=== PATIENT | female | born 1955 | race Caucasian/White ===

== ENCOUNTER 2021-08-15 07:18 | Observation (INO) | payer OTHER ==
[~2021-08-15] VITALS: Ht 152.4 cm; Wt 73.0 kg
[2021-08-15] MEDS ORDERED: NITR.4SL SL (07:54)
[2021-08-15] MEDS ORDERED: OMEP20ER PO (07:54)
[2021-08-15] MEDS ORDERED: METO100 PO (07:55)
[2021-08-15] MEDS ORDERED: CLOP75 PO (07:55)
[2021-08-15] MEDS ORDERED: FURO40 PO (07:55)
[2021-08-15] MEDS ORDERED: BUPR150ER PO (07:55)
[2021-08-15 07:56] LABS: BASOPHILS ABSOLUTE AUTO 0.06 K/mm3 (0.00-0.23); BASOPHILS PERCENT AUTO 0 % (0-2); EOSINOPHILS ABSOLUTE AUTO 0.37 K/mm3 (0.00-0.68); EOSINOPHILS PERCENT AUTO 2 % (0-6); Hematocrit 42.3 % (33.0-51.0); Hemoglobin 13.3 g/dL (11.5-16.0); IMMATURE GRAN ABSOLUTE AUTO 0.05 K/mm3 (0.00-0.10); IMMATURE GRAN PERCENT AUTO 0 % (0-1); LYMPHOCYTES ABSOLUTE AUTO 3.45 K/mm3 (0.84-5.20); LYMPHOCYTES PERCENT AUTO 22 % (21-46); MONOCYTES ABSOLUTE AUTO 0.77 K/mm3 (0.16-1.47); MONOCYTES PERCENT AUTO 5 % (4-13); Mean Corpuscular HGB 29.3 pg (26.0-34.0); Mean Corpuscular HGB Conc 31.4 g/dL (31.5-36.5); Mean Corpuscular Volume 93 fL (80-100); Mean Platelet Volume 9.9 fL (9.1-12.4); NEUTROPHILS ABSOLUTE AUTO 11.03 K/mm3 (1.96-9.15); NEUTROPHILS PERCENT AUTO 70 % (41-73); Platelet Count 294 K/mm3 (150-400); RDW Coefficient Variation 13.5 % (11.7-14.2); RDW Standard Deviation 46.5 fL (35.1-46.3); Red Blood Cell Count 4.54 M/mm3 (3.80-5.20); White Blood Cell Count 15.73 K/mm3 (4.00-11.30)
[2021-08-15] MEDS ORDERED: LOSA25 PO (07:56)
[2021-08-15] MEDS ORDERED: ASPIR 8181 MG PO (07:56)
[2021-08-15] MEDS ORDERED: ATOR80 PO (07:56)
[2021-08-15] MEDS ORDERED: FENO54 PO (07:56)
[2021-08-15] MEDS ORDERED: ZYRTEC10 M1 PO (07:57)
[2021-08-15 08:08] LABS: Albumin, Blood 3.6 g/dL (3.4-5.0); Albumin/Globulin Ratio 0.9 (0.8-1.8); Bilirubin, Total 0.5 mg/dL (0.1-1.0); Bun/Creatinine Ratio 12.6 (12.0-20.0); Calcium, Blood 8.5 mg/dL (8.5-10.1); Creatinine, Blood 1.03 mg/dL (0.40-1.00); Globulin, Blood 3.8 g/dL (2.2-4.0); Total Protein, Blood 7.4 g/dL (6.4-8.2)
[2021-08-15 08:36] LABS: Influenza A, PCR NEGATIVE (NEGATIVE); Influenza B, PCR NEGATIVE (NEGATIVE); Resp Syncytial Virus, PCR NEGATIVE (NEGATIVE); SARS-Cov-2 (COVID-19) PCR, MMC NEGATIVE (NEGATIVE)
--- NOTE | 2021-08-15 12:28 | NUR ---
ADMIT TO PCU: PATIENT ADMIT TO PCU AT 1139. ABLE TO STAND AND TRANSFER IND. ALERT AND ORIENTED X4. VERY HAPPY AND CALM. CLAIMS TO HAVE HISTORY OF NUMBNESS/TINGLING THAT COMES AND GOES IN ARMS AND LEGS. PERRLA. ON ROOM AIR SATING LOW 90'S. SOB WITH EXERTION. LUNGS SOUNDING CLEAR AND DIM AT THIS TIME. WHEEZES COME AND GO. TELE SHOWING SINUS RHYTHM WITH HR 60-70'S. DENIES CHEST PAIN/PRESSURE AT THIS TIME. STATES PRESSURE IN CHEST COMES AND GOES. PATIENT STATES SHE HAS NOT BEEN TAKING HER IMDUR AT HOME. DENIES ABDOMINAL PAIN/NAUSEA. STRICT I/O. UP TO BATHROOM IND. ORIENTED TO ROOM AND UNIT. VITAL SIGNS STABLE AT THIS TIME. BP TRENDING IN RIGHT DIRECTION FROM HYDRALAZINE THAT WAS GIVEN IN ED. PATIENT PLACED CALL TO PARTNER BETH TO UPDATE. CALL LIGHT IN REACH. DENIES NEEDS AT THIS TIME. WILL CONTINUE TO MONITOR.
--- NOTE | 2021-08-15 18:45 | NUR ---
SHIFT SUMMARY: NO ACUTE CHANGES, SEE PREVIOUS AM NOTE. BP TRENDING IN RIGHT DIRECTION. PATIENT STATES HER BREATHING HAS IMPROVED AND SHE IS FEELING MUCH BETTER. STRICT I/O. UP TO BATHROOM IND, URINATING IN HAT FOR MEASURMENT. COMPLAINED OF HEADACHE, TYLENOL ORDERED AND GIVEN - WITH LITTLE RELIEF. PATIENT IN GOOD SPIRITS DISCUSSING FAMILY STORIES AND LAUGHING. CALL LIGHT IN REACH. WILL CONTINUE TO MONITOR AND REPORT OFF.
[2021-08-16 03:38] LABS: Hematocrit 40.5 % (33.0-51.0); Hemoglobin 13.2 g/dL (11.5-16.0); Mean Corpuscular HGB 28.8 pg (26.0-34.0); Mean Corpuscular HGB Conc 32.6 g/dL (31.5-36.5); Mean Corpuscular Volume 88 fL (80-100); Mean Platelet Volume 10.3 fL (9.1-12.4); Platelet Count 305 K/mm3 (150-400); RDW Coefficient Variation 13.6 % (11.7-14.2); RDW Standard Deviation 43.7 fL (35.1-46.3); Red Blood Cell Count 4.59 M/mm3 (3.80-5.20)
[2021-08-16 04:01] LABS: Bun/Creatinine Ratio 22.1 (12.0-20.0); Calcium, Blood 9.4 mg/dL (8.5-10.1); Potassium, Blood 3.3 mmol/L (3.5-5.5)
--- NOTE | 2021-08-16 05:21 | NUR ---
SHIFT SUMMARY PT IS ALERT AND ORIENTED. THERE HAVE BEEN NO ACUTE CHANGES T/O THE NIGHT. VITALS HAVE BEEN STABLE AND PT IS ON ROOM AIR WITH SATS ABOVE 92%. PT DENIES CHEST PAIN AND SOB. PT IS AD MECHELLE IN ROOM. PT HAS BEEN UP EARLY THIS MORNING AWAITING POSSIBLE DC ORDERS, PER PT. CALL LIGHT IS WITHIN REACH.
--- NOTE | 2021-08-16 09:27 | NUR ---
AM NOTE: PATIENT ALERT AND ORIENTED X4. VERY HAPPY AND COOPERATIVE WITH CARES. NEURO WNL. UP IND TO BATHROOM. DENIES NUMBNESS/TINGLING. ON ROOM AIR SATING ABOVE 94%. STATES SOB HAS BEEN IMPROVING. OCCASIONAL COUGH. TELE SHOWING SINUS RHYTHM WITH HR 60-70'S. DENIES CHEST PAIN. STATES SHE HAS OCCASIONAL PRESSURE. BP STABLE. VERY MINIMAL GENERALIZED EDEMA. STRICT I/0. DENIES ABDOMINAL PAIN/NAUSEA. TOLERATING PO DIET. TAKING PILLS WHOLE WITH WATER. NO ISSUES NOTED WITH SWALLOW. UA COLLECTED THIS AM. DENIES NEEDS AT THIS TIME. WILL CONITNUE TO MONITOR. CALL LIGHT IN REACH.
[2021-08-16 09:31] LABS: Source, Urine Clean Catch
[2021-08-16 09:36] LABS: Appearance, Urine Clear (Clear); Bilirubin, Urine Neg (Neg); Blood, Urine Neg (Neg); Color, Urine Yellow (P-Yellow); Glucose Qualitative, Urine Neg (Neg); Ketones, Urine Neg (Neg); Leukocyte Esterase, Urine Neg (Neg); Nitrite, Urine Neg (Neg); Protein, Urine Neg (Neg); Specific Gravity, Urine 1.015 (1.003-1.022); Urobilinogen, Urine NORM (Normal)
[2021-08-16] MEDS ORDERED: VISBIOME 112.51 EACH PO (12:08)
[2021-08-16] MEDS ORDERED: POTA10T PO (12:09)
[2021-08-16] MEDS ORDERED: AZIT250 PO (12:09)
[2021-08-16] MEDS ORDERED: PANT40 PO (12:16)
[2021-08-16] MEDS ORDERED: FURO20 PO (12:18)
--- NOTE | 2021-08-16 13:08 | NUR ---
DISCHARGE NOTE: NO ACUTE CHANGES. SEE PREVIOUS AM NOTE FOR UPDATES. VITAL SIGNS REMAIN STABLE. DISCHARGE INSTRUCTIONS REVIEWED AND QUESTIONS ANSWERED. THIS RN PROVIDED EDUCATION ON FOLLOW UP APPOINTMENTS, FOLLOW UP LABS, AND NEW MEDICATIONS. EDUCATION TAUGHT ON PANTOPRAZOLE IN PLACE OF OMEPRAZOLE, DUE TO ITS INTERACTIONS WITH PLAVIX. PATIENT ABLE TO TEACH BACK ALL EDUCATION. SPOUSE BETH IN TO PICK PATIENT UP. PATIENT LEFT UNIT WITH ALL PERSONAL BELONGINGS AND DISCHARGE PACKET. [facility]
== END 2021-08-16 12:58 | disposition home or self-care (01) ==
LOC: ER 07:18 → PCU 07:20 → ER 10:37 → PCU 11:30
PROVIDERS: Emergency Medicine; ADMIT Internal Medicine
DX: I16.0 Hypertensive urgency (principal); I13.0 Hypertensive heart and chronic kidney disease with heart failure and stage 1 through stage 4 chronic kidney disease, or unspecified chronic kidney disease; N18.30 Chronic kidney disease, stage 3 unspecified; I50.31 Acute diastolic (congestive) heart failure; R07.2 Precordial pain; I25.10 Atherosclerotic heart disease of native coronary artery without angina pectoris; I25.2 Old myocardial infarction; I73.9 Peripheral vascular disease, unspecified; J45.909 Unspecified asthma, uncomplicated; K21.9 Gastro-esophageal reflux disease without esophagitis; E66.9 Obesity, unspecified; D72.829 Elevated white blood cell count, unspecified; F41.9 Anxiety disorder, unspecified; F17.210 Nicotine dependence, cigarettes, uncomplicated; I34.0 Nonrheumatic mitral (valve) insufficiency; Z95.5 Presence of coronary angioplasty implant and graft; Z86.19 Personal history of other infectious and parasitic diseases; Z68.32 Body mass index [BMI] 32.0-32.9, adult; Z20.822 Contact with and (suspected) exposure to COVID-19
CPT/HCPCS: 0241U; 36415; 71045; 80048; 80053; 81003; 83880; 84145; 84443; 84484; 85025; 85027; 93005; 93010; 93306; 94640; 94664; 94762; A9270; J0360; J1650; J1940; J2930

== ENCOUNTER → 2021-08-19 | Outpatient (CLI) | payer OTHER ==
[~2021-08-19] MED LIST: ASPIR 8181 MG PO; ATOR80 PO; AZIT250 PO; BUPR150ER PO; CLOP75 PO; FENO54 PO; FURO20 PO; FURO40 PO; LOSA25 PO; METO100 PO; NITR.4SL SL; OMEP20ER PO; PANT40 PO; POTA10T PO; VISBIOME 112.51 EACH PO; ZYRTEC10 M1 PO
[2021-08-19 13:17] LABS: BASOPHILS ABSOLUTE AUTO 0.07 K/mm3 (0.00-0.23); BASOPHILS PERCENT AUTO 1 % (0-2); EOSINOPHILS PERCENT AUTO 3 % (0-6); Hematocrit 45.5 % (33.0-51.0); Hemoglobin 14.6 g/dL (11.5-16.0); IMMATURE GRAN ABSOLUTE AUTO 0.04 K/mm3 (0.00-0.10); IMMATURE GRAN PERCENT AUTO 0 % (0-1); LYMPHOCYTES ABSOLUTE AUTO 4.15 K/mm3 (0.84-5.20); LYMPHOCYTES PERCENT AUTO 33 % (21-46); MONOCYTES ABSOLUTE AUTO 0.73 K/mm3 (0.16-1.47); MONOCYTES PERCENT AUTO 6 % (4-13); Mean Corpuscular HGB 28.9 pg (26.0-34.0); Mean Corpuscular HGB Conc 32.1 g/dL (31.5-36.5); Mean Corpuscular Volume 90 fL (80-100); Mean Platelet Volume 10.1 fL (9.1-12.4); NEUTROPHILS PERCENT AUTO 57 % (41-73); Platelet Count 356 K/mm3 (150-400); RDW Coefficient Variation 13.7 % (11.7-14.2); RDW Standard Deviation 45.2 fL (35.1-46.3); Red Blood Cell Count 5.05 M/mm3 (3.80-5.20); White Blood Cell Count 12.59 K/mm3 (4.00-11.30)
== END | disposition home or self-care (01) ==
LOC: LAB 09:55 → LAB SHORT 09:55
PROVIDERS: Family Medicine
DX: J20.9 Acute bronchitis, unspecified (principal)
CPT/HCPCS: 85025

== ENCOUNTER → 2022-10-25 | Outpatient (CLI) | payer MEDICARE, OTHER | END | disposition home or self-care (01) | LOC: LAB 09:09 → LAB SHORT 09:09 | DX: K21.9 Gastro-esophageal reflux disease without esophagitis (principal) | CPT/HCPCS: 87338 ==

== ENCOUNTER 2023-04-13 06:48 | Day surgery (SDC) | payer MEDICARE, OTHER ==
--- NOTE | 2023-04-12 13:31 | NUR ---
History, Chart, Medications and Allergies reviewed and updated from medical record for planned procedure tomorrow. Patient did not answer phone to update.
[~2023-04-13] VITALS: Ht 152.4 cm; Wt 66.6 kg
[2023-04-13] VITALS (14 sets, daily range): BP systolic 90–181; BP diastolic 50–135
[~2023-04-13 06:48] MED LIST changes: +ALBU90OI INH; +ANORO ELLIPTA1 EAC1 INH; +BUPROPION XL150 M1 PO; +SPIR25 PO
--- NOTE | 2023-04-13 07:36 | NUR ---
Ambulatory in Day Surgery History, Chart, Medications and Allergies reviewed before start of procedure. Pre-Op teaching done. Pt verbalizes understanding. Patient States Post-Procedure ride home has been arranged.
--- NOTE | 2023-04-13 08:01 | NUR ---
04/13/23 0801 [place] HISTORY, CHART, MEDICATIONS AND ALLERGIES REVIEWED BEFORE START OF PROCEDURE. PATIENT CONFIRMS NPO STATUS AND AGREES WITH SCHEDULED PROCEDURE. 3-LEAD EKG REVIEWED WITH PHYSICIAN PRIOR TO START OF PROCEDURE. MONITOR INTACT WITH CONTINUOUS PULSE OXIMETRY,CAPNOGRAPHY, 3-LEAD EKG, INTERMITTENT BP. SUPPLEMENTAL O2 TO BE TITRATED THROUGHOUT PROCEDURE TO MAINTAIN O2 SATURATION ABOVE 90%. PATIENT DETERMINED TO BE ASA APPROPRIATE FOR PROPOFOL SEDATION PRIOR TO START OF PROCEDURE BY
--- NOTE | 2023-04-13 08:51 | NUR ---
PT TO DAY SURGERY STEP, HAD EGD AND COLONOSCOPY. PT FEELING WELL, IS AWAKE, ALERT AND ORIENTED; ABLE TO MOVE SELF IN BED. PT WILL BE HER RIDE HOME.
--- NOTE | 2023-04-13 09:01 | NUR ---
Discharge instructions reviewed with patient. Patient verbalizes understanding. Copy given to patient to take home.
--- NOTE | 2023-04-13 09:10 | NUR ---
Patient up to Ambulate independently. Gait steady. Discharged via wheelchair to private car for ride home.
== END 2023-04-13 09:14 | disposition home or self-care (01) ==
LOC: ORSCMMR 06:48 → ORD 08:00 → ORSCMMR 09:14
PROVIDERS: Internal Medicine Gastroenterology
PROC: 0DB98ZX Excision of Duodenum, Via Natural or Artificial Opening Endoscopic, Diagnostic (ICD-10-PCS; principal; 2023-04-13 08:00)
PROC: 0DBE8ZX Excision of Large Intestine, Via Natural or Artificial Opening Endoscopic, Diagnostic (ICD-10-PCS; principal; 2023-04-13 08:00)
PROC: 0DB48ZX Excision of Esophagogastric Junction, Via Natural or Artificial Opening Endoscopic, Diagnostic (ICD-10-PCS; principal; 2023-04-13 08:00)
PROC: 0DB58ZX Excision of Esophagus, Via Natural or Artificial Opening Endoscopic, Diagnostic (ICD-10-PCS; principal; 2023-04-13 08:00)
DX: R19.7 Diarrhea, unspecified (principal); K21.9 Gastro-esophageal reflux disease without esophagitis; K44.9 Diaphragmatic hernia without obstruction or gangrene; K63.5 Polyp of colon; R13.14 Dysphagia, pharyngoesophageal phase; I25.10 Atherosclerotic heart disease of native coronary artery without angina pectoris; Z79.899 Other long term (current) drug therapy; I25.2 Old myocardial infarction; J44.9 Chronic obstructive pulmonary disease, unspecified; F17.210 Nicotine dependence, cigarettes, uncomplicated; Z79.02 Long term (current) use of antithrombotics/antiplatelets; Z79.82 Long term (current) use of aspirin
CPT/HCPCS: 88305; A9270; J2250; J2704; J7120

== ENCOUNTER → 2023-11-22 | Outpatient (CLI) | payer MEDICARE, OTHER ==
[2023-11-22 18:42] LABS: BASOPHILS ABSOLUTE AUTO 0.07 K/mm3 (0.00-0.23); BASOPHILS PERCENT AUTO 1 % (0-2); EOSINOPHILS ABSOLUTE AUTO 0.31 K/mm3 (0.00-0.68); EOSINOPHILS PERCENT AUTO 3 % (0-6); Hematocrit 38.8 % (33.0-51.0); Hemoglobin 12.6 g/dL (11.5-16.0); IMMATURE GRAN ABSOLUTE AUTO 0.02 K/mm3 (0.00-0.10); IMMATURE GRAN PERCENT AUTO 0 % (0-1); LYMPHOCYTES ABSOLUTE AUTO 3.75 K/mm3 (0.84-5.20); LYMPHOCYTES PERCENT AUTO 35 % (21-46); MONOCYTES ABSOLUTE AUTO 0.61 K/mm3 (0.16-1.47); MONOCYTES PERCENT AUTO 6 % (4-13); Mean Corpuscular HGB 29.1 pg (26.0-34.0); Mean Corpuscular HGB Conc 32.5 g/dL (31.5-36.5); Mean Corpuscular Volume 90 fL (80-100); Mean Platelet Volume 9.7 fL (9.1-12.4); NEUTROPHILS ABSOLUTE AUTO 5.87 K/mm3 (1.96-9.15); NEUTROPHILS PERCENT AUTO 55 % (41-73); Platelet Count 262 K/mm3 (150-400); RDW Coefficient Variation 13.2 % (11.7-14.2); RDW Standard Deviation 43.2 fL (35.1-46.3); Red Blood Cell Count 4.33 M/mm3 (3.80-5.20); White Blood Cell Count 10.63 K/mm3 (4.00-11.30)
[2023-11-22 19:25] LABS: Anion Gap 6 mmol/L (3-11); Blood Urea Nitrogen 11 mg/dL (8-24); Bun/Creatinine Ratio 13.6 (12.0-20.0); CHOL/HDL RATIO 3.5; CO2, Blood 30 mmol/L (21-32); Calcium, Blood 9.2 mg/dL (8.5-10.1); Chloride, Blood 108 mmol/L (98-108); Cholesterol 124 mg/dL (50-200); Creatinine, Blood 0.81 mg/dL (0.40-1.00); Glomerular Filtration Rate 80 (60-); Glucose, Blood 102 mg/dL (70-99); HDL Cholesterol 35 mg/dL (>39); Low Density Lipoprotein Chol 34 mg/dL (0-110); Magnesium, Blood 1.7 mg/dL (1.6-2.4); Potassium, Blood 3.4 mmol/L (3.5-5.5); Sodium, Blood 141 mmol/L (136-145); Triglycerides 275 mg/dL (30-160); Very Low Density Lipoprot Chol 55 mg/dL (6-32)
[2023-11-25 08:00] LABS: HIV 1,2 COMBO ANTIGEN/ANTIBODY Negative (Negative)
== END | disposition home or self-care (01) ==
LOC: LAB 12:09 → LAB SHORT 12:09
PROVIDERS: Student in an Organized Health Care Education/Training Program
DX: Z11.4 Encounter for screening for human immunodeficiency virus [HIV] (principal); I10 Essential (primary) hypertension; R25.2 Cramp and spasm
CPT/HCPCS: 80048; 80061; 83735; 84443; 85025; 87389